=== PATIENT | male | born 1945 | race Caucasian/White ===

== ENCOUNTER 2022-08-03 11:57 | Observation (INO) | payer MEDICARE, BC ==
[2022-08-03] MEDS ORDERED: Sodium Chloride 0.9% 1,000 ML IV ONE (13:30)
[2022-08-03] MEDS ORDERED: Iopamidol 755 Mg/ML 100 ML Bottle IVPUSH ONE (13:48)
[2022-08-03] MEDS: Sodium Chloride 0.9% 1,000 ML IV SCH (15:49)
[2022-08-03] MEDS ORDERED: Loperamide 2 MG Tab PO PRN (18:18)
[2022-08-03] MEDS ORDERED: Acetaminophen 500 MG Tab PO PRN (18:18)
[2022-08-03] MEDS ORDERED: oxyCODONE 5 MG Tab PO PRN (18:18)
[2022-08-03] MEDS ORDERED: Acetaminophen 500 MG Tab ONE (18:28)
[2022-08-03] MEDS ORDERED: Loperamide 2 MG Tab ONE (18:29)
[2022-08-03] MEDS: Amylase/Lipase/Protease 12,000 Unit Cap.CR PO SCH ×2 (19:50→20:38)
[2022-08-03] MEDS ORDERED: Tamsulosin 0.4 MG Cap.ER PO SCH (20:00)
[2022-08-03] MEDS ORDERED: Rivaroxaban 10 MG Tab PO SCH (20:00)
[2022-08-03] MEDS ORDERED: Finasteride 5 MG Tab PO SCH (20:00)
[2022-08-03] MEDS ORDERED: OLANZapine 5 MG Tab PO SCH (20:00)
[2022-08-03] MEDS ORDERED: Rosuvastatin 10 MG Tab PO SCH (20:00)
[2022-08-03] MEDS ORDERED: OLANZapine 10 MG Tab PO SCH (20:00)
[2022-08-04] MEDS: Amylase/Lipase/Protease 12,000 Unit Cap.CR PO SCH ×3 (02:47→10:27)
[2022-08-04] MEDS: Sodium Chloride 0.9% 1,000 ML IV SCH (02:48)
[2022-08-04] MEDS ORDERED: Levothyroxine 88 MCG Tab PO SCH (07:30)
[2022-08-04] MEDS ORDERED: Potassium Chloride 20 MEQ Tab.ER PO SCH (08:00)
[2022-08-04] MEDS ORDERED: Omeprazole 20 MG Cap.CR PO SCH (08:00)
[2022-08-04 08:04] LABS: ANION GAP 10.9 meq/L (7-15)
[2022-08-04] MEDS ORDERED: Sodium Chloride 0.9% 10 ML Syringe FLUSH PRN (11:51)
== END 2022-08-04 12:10 | disposition home or self-care (01) ==
LOC: LL.ED 11:57 → LL.MS 14:41 → INTOOBSV 14:41
PROVIDERS: ADMIT Emergency Medicine; ATTEND Emergency Medicine
DX: R55 Syncope and collapse (principal); R79.89 Other specified abnormal findings of blood chemistry; R06.02 Shortness of breath; E78.00 Pure hypercholesterolemia, unspecified; E03.9 Hypothyroidism, unspecified; K21.9 Gastro-esophageal reflux disease without esophagitis; E11.9 Type 2 diabetes mellitus without complications; N40.0 Benign prostatic hyperplasia without lower urinary tract symptoms; Z79.899 Other long term (current) drug therapy; Z79.890 Hormone replacement therapy; Z98.890 Other specified postprocedural states
CPT/HCPCS: 36415; 71275; 80048; 81003; 82947; 83605; 83735; 85025; 93005; 96360; 96361; 97161-GP; 99285-25; A9270-GY; G0378; J1642; J3490; J7030; Q9967